=== PATIENT | male | born 1950 | race Caucasian/White ===

== ENCOUNTER 2020-08-13 13:23 | Outpatient (CLI) | payer MEDICARE, SELFPAY ==
[2020-08-14 13:52] LABS: SARS-CoV-2 RNA PCR Negative
== END 2020-08-13 13:24 | disposition home or self-care (01) ==
PROVIDERS: PCP Internal Medicine; Visit Provider Internal Medicine
DX: Z20.828 Contact with and (suspected) exposure to other viral communicable diseases (principal)
CPT/HCPCS: 87635; C9803; U0003

== ENCOUNTER 2020-10-17 12:58 | Outpatient (CLI) | payer MEDICARE, SELFPAY ==
[2020-10-17 13:58] LABS: SARS-CoV-2 Ag Positive (Negative)
[2020-10-18 18:38] LABS: SARS-CoV-2 RNA PCR Positive
== END 2020-10-17 12:59 | disposition home or self-care (01) ==
PROVIDERS: PCP Internal Medicine; Visit Provider Internal Medicine
DX: U07.1 COVID-19 (principal)
CPT/HCPCS: 87426; 87635; C9803; U0003

== ENCOUNTER 2020-11-12 01:24 | Day surgery (SDC) | payer MEDICARE, SELFPAY ==
[2020-11-05 13:10] VITALS: BMI 39.8
[2020-11-12 11:09] VITALS: BP 134/58; PULSE 73; RESP 16; TEMP 36.1; O2SAT 100; BMI 37.8
--- NOTE | 2020-11-12 11:15 | WPDANESEPPF ---
Anes - Initial Pre Proc Eval Procedure: Operation Date: 11/12/20 12:15 Proposed Procedures p Colonoscopy - Perez Dunn MD Date/Time: 11/12/20 11:15 Surgeon: Perez Dunn MD Pre Op Diagnosis: Positive Cologard Patient Data Age: 69 Gender: M Height: 1.85 m Weight: 130 kg Last Vital Signs Temp 36.1 C L 11/12/20 11:09 Pulse 73 11/12/20 11:09 Resp 16 11/12/20 11:09 BP 134/58 L 11/12/20 11:09 Pulse Ox 100 11/12/20 11:09 Allergies Allergy/AdvReac Type Severity Reaction Status Date / Time cefepime Allergy Severe Anaphylactic Verified 11/12/20 11:08 Shock vancomycin Allergy Severe Anaphylactic Verified 11/12/20 11:08 Shock Home Medications Medication Instructions Recorded Confirmed Type aspirin [Adult Aspirin EC Low 81 mg PO DAILY 11/05/20 11/05/20 History Strength] atenolol 50 mg PO HS 11/05/20 11/05/20 History cholecalciferol (vitamin D3) 50 mcg PO DAILY 11/05/20 11/05/20 History [Vitamin D3] diphenhydramine HCl [Benadryl] 25 mg PO HS 11/05/20 11/05/20 History insulin NPH and regular human 30 unit SUBCUT BID 11/05/20 11/05/20 History [Humulin 70/30 U-100 Insulin] mecobalamin (vitamin B12) 1,000 mcg PO DAILY 11/05/20 11/05/20 History mqeyhtld-cky-fidu-vitamin K [Adult 1 tablet PO DAILY 11/05/20 11/05/20 History Multivitamin with Iron] sodium,potassium,mag sulfates See Rx Instructions .ROUTE 11/05/20 Rx [Suprep Bowel Prep Kit] .COMPLEX #1 ml spironolacton-hydrochlorothiaz 1 tablet PO DAILY 11/05/20 11/05/20 History triamcinolone acetonide 1 applic TOPICAL PRN PRN 11/05/20 11/05/20 History Patient hx anesthesia problems: none Family hx anesthesia problems: none PMFSH Past Medical History Medical History (Updated 11/12/20 @ 11:18 by Carson Munguia MD) Cancer testicular CKD (chronic kidney disease) stage 3, GFR 30-59 ml/min Diabetes HTN (hypertension) Obesity Social History Social History Smoking status: Never smoker Alcohol intake: current Substance use: never Substance use type: does not use Living arrangements: with family Spiritual care concerns: No Anes - Eval Final PreProcedure Day of Procedure 11/12/20 11:15 Patient weight: obese Heart: regular rate and rhythm Lungs: clear to auscultation and normal air movement Airway: Mallampati scale class II Neurological: alert and oriented Last oral intake: >/= 8 hours ASA classification: III Emergent: no Anesthetic plan: proceed Anesthesia type and monitoring: general GIVS Informed Consent: The patient's anesthetic plan and its attendant risks and benefits were discussed with the patient/family/POA. Questions were solicited and answers provided to the satisfaction of the patient/family/POA.
[2020-11-12] MEDS: LACTATED RINGERS 1,000 ML 150 ML IV CONT (11:27)
[2020-11-12 11:29] LABS: Glucose Point of Care 147 (65-105)
--- NOTE | 2020-11-12 11:56 | PM.HPGS ---
History of Present Illness History of Present Illness Consent: Risks, benefits, and alternatives have been discussed and questions answered. Patient agrees to proceed with procedure. Chief complaint: Positive Cologard Narrative: Maykel Mosley Sr. is a 69 year old male with positive cologuard, never had colonoscopy. No family history of colon cancer. Review of Systems Constitutional: Constitutional: Denies headache(s) and Denies weakness Eyes: Eyes: Denies blurry vision ENT: Reports Normal hearing present, Denies headache(s) and Denies neck pain Cardiovascular: Cardiovascular: Denies chest pain and Denies dyspnea Respiratory: Respiratory: Denies dyspnea Gastrointestinal: Gastrointestinal: Reports no additional gastrointestinal complaints Genitourinary: Genitourinary: Denies dysuria Musculoskeletal: Musculoskeletal: Denies neck pain Integumentary/Breasts: Skin/Breast: Denies dry skin Neurologic: Reports Normal hearing present, Denies headache(s) and Denies weakness Psychiatric: Psychiatric: Denies anxiety Endocrine: Endocrine: Denies change in body appearance Hematologic/Lymphatic: Hematologic/Lymphatic: Denies easy bleeding Allergic/Immunologic: Allergic/Immunologic: Denies urticaria PMF Past Medical History Medical History (Updated 11/12/20 @ 11:57 by Perez Dunn MD) Cancer testicular CKD (chronic kidney disease) stage 3, GFR 30-59 ml/min Diabetes HTN (hypertension) Obesity Positive colorectal cancer screening using Cologuard test Social History Social History Smoking status: Never smoker Alcohol intake: current Substance use: never Substance use type: does not use Living arrangements: with family Spiritual care concerns: No Meds Home Medications and Allergies Home Medications Medication Instructions Recorded Confirmed Type aspirin [Adult Aspirin EC Low 81 mg PO DAILY 11/05/20 11/12/20 History Strength] atenolol 50 mg PO HS 11/05/20 11/12/20 History cholecalciferol (vitamin D3) 50 mcg PO DAILY 11/05/20 11/12/20 History [Vitamin D3] diphenhydramine HCl [Benadryl] 25 mg PO HS 11/05/20 11/12/20 History insulin NPH and regular human 30 unit SUBCUT BID 11/05/20 11/12/20 History [Humulin 70/30 U-100 Insulin] mecobalamin (vitamin B12) 1,000 mcg PO DAILY 11/05/20 11/12/20 History rvgqxzrr-jbk-tkax-vitamin K [Adult 1 tablet PO DAILY 11/05/20 11/12/20 History Multivitamin with Iron] sodium,potassium,mag sulfates See Rx Instructions .ROUTE 11/05/20 Rx [Suprep Bowel Prep Kit] .COMPLEX #1 ml spironolacton-hydrochlorothiaz 1 tablet PO DAILY 11/05/20 11/12/20 History triamcinolone acetonide 1 applic TOPICAL PRN PRN 11/05/20 11/12/20 History Allergies Allergy/AdvReac Type Severity Reaction Status Date / Time cefepime Allergy Severe Anaphylactic Verified 11/12/20 11:08 Shock vancomycin Allergy Severe Anaphylactic Verified 11/12/20 11:08 Shock Vital Signs Vital Signs - 24 hr 11/12/20 11:09 Temperature 97.0 F L Pulse Rate 73 Respiratory Rate 16 Blood Pressure 134/58 L Pulse Oximetry 100 Exam Const: General: comfortable and no acute distress HENMT: General nose exam: Normal nares present Eyes: General: appearance normal, both eyes and all related structures Neck: Neck: no JVD Resp: Auscultation: clear to auscultation bilaterally Cardio: Rate: regular rate Rhythm: regular rhythm GI: Inspection: non-distended GI Palp: Yes Soft to palpation Skin: General skin exam: normal color Neuro: General: gait normal Speech: normal speech Extrem: General: normal to inspection Psych: Mental Status: mental status grossly normal Assessment and Plan Assessment and plan (1) Positive colorectal cancer screening using Cologuard test: Code(s): R19.5 - Other fecal abnormalities Status: Acute Assessment and Plan: will proceed with colonoscopy
[2020-11-12 12:41] VITALS: BP 99/60; PULSE 72; RESP 16; O2SAT 100
[2020-11-12 12:51] VITALS: BP 125/69; PULSE 72; RESP 16; O2SAT 100
[2020-11-12 12:52] LABS: Glucose Point of Care 145 (65-105)
[2020-11-12 13:01] VITALS: BP 116/63; PULSE 72; RESP 16; O2SAT 96
== END 2020-11-12 13:10 | disposition home or self-care (01) ==
PROVIDERS: PCP Internal Medicine; Visit Provider Internal Medicine Gastroenterology
PROC: 0DJD8ZZ Inspection of Lower Intestinal Tract, Via Natural or Artificial Opening Endoscopic (ICD-10-PCS; CPT 45378; principal; 2020-11-12 12:15)
DX: R19.5 Other fecal abnormalities (principal); D12.0 Benign neoplasm of cecum; D12.3 Benign neoplasm of transverse colon; K63.5 Polyp of colon; K57.30 Diverticulosis of large intestine without perforation or abscess without bleeding; K64.8 Other hemorrhoids; I12.9 Hypertensive chronic kidney disease with stage 1 through stage 4 chronic kidney disease, or unspecified chronic kidney disease; N18.30 Chronic kidney disease, stage 3 unspecified; E11.22 Type 2 diabetes mellitus with diabetic chronic kidney disease; E66.9 Obesity, unspecified; Z68.37 Body mass index [BMI] 37.0-37.9, adult; Z85.47 Personal history of malignant neoplasm of testis
CPT/HCPCS: 45385; 88305; J2704; J7120

== ENCOUNTER 2021-02-07 14:10 | Outpatient (CLI) | payer MEDICARE, SELFPAY ==
--- NOTE | ~2021-02-07 | XR_ITS ---
EXAMINATION: XR knee LT 3V DATE: 02/07/2021 14:43 INDICATION: Generalized left knee pain and difficulty lifting the leg TECHNIQUE: Anteroposterior, sunrise and crosstable lateral views of the left knee were obtained COMPARISON: None. FINDINGS: Alignment is normal. No fracture. Joint spaces appear relatively preserved on nonweightbearing imagi ng. No joint effusion/layering lipohemarthrosis. Small enthesophytes at the proximal patella and ante rior tibial tuberosity. Small amount of heterotopic ossification along the periphery of the proximal medial head of the gastrocnemius muscle. Atherosclerotic calcification along the popliteal artery. So ft tissues are unremarkable. IMPRESSION: 1. No left knee joint effusion or acute osseous abnormality. Reviewed, dictated and finalized at location A.
== END 2021-02-07 14:11 | disposition home or self-care (01) ==
LOC: CHSIMG 14:14
PROVIDERS: PCP Internal Medicine; Visit Provider Nurse Practitioner Family
DX: M25.562 Pain in left knee (principal)
CPT/HCPCS: 73562

== ENCOUNTER 2021-02-17 13:58 | Outpatient (RCR) | payer MEDICARE, SELFPAY ==
--- NOTE | 2021-02-17 15:11 | PTOPEVAL ---
Thank you for referring Maykel Mosley Sr. to [facility].? The patient is scheduled to be seen for therapy? __3__x/week for 12 visits. Please review, sign, date and return this plan of care TYLER. I agree with and certify that the following plan of care is medically necessary. Referring Physician Date Admitting Provider: Attending Provider: Zain Newby MD Referring Provider: *PT Outpatient Evaluation Start: 02/17/21 13:57 Freq: Status: Active Protocol: Document 02/17/21 13:58 LAURYN (Rec: 02/17/21 15:03 LAURYN [id number]) Therapy Assessment Status Assessment Status Assessment Status Evaluation Outpatient Past Medical History Neurological History Hx Neurological Disorders No Significant History Cardiovascular History Hx Hypertension Yes Respiratory History Hx Respiratory Disorders No Significant History Gastrointestinal History Hx Appendectomy Yes: 2015 Hx Other Gastrointestinal Disorders Yes: POSITIVE COLOGUARD 2019 Genitourinary History Hx Renal Disease Yes: STATES WAS TOLD KIDNEY FUNCTION IS AT ABOUT 30% CREATINE IS HIGH 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 BOTH LEGS AND 09/2020 BECAME SEPTIC HOSP.,VEINOCELE DONE Hx Other Skin Disorders Yes: ULCER ON R-LEG MOSTLY HEALED WITH SMALL AREA 1/4 IN. Reproductive History Hx Other Reproductive Disorders Yes: R-ORCHIECTOMY 1984? Psychosocial History Hx Psychiatric Disorders No Significant History Pain History History of Any Previous or Ongoing No Significant History Instance of Pain Anesthesia History Hx Other Anesthesia Reactions Yes: SLOW TO WAKE UP Other History Hx Cancer Yes: TESTICULAR 1985? Hx Chemotherapy Yes: 1985? Hx MRSA Yes: 09/2020 AFTER HOSPITALIZATION FOR CELLULITIS - Evaluation Information Problem Diagnosis back pain, leg l.e. weakness, gait disorder Onset 02/10/21 Subjective Information Pt. reports that he suffers Query Text:As Reported By Patient/ from PVD. He states that the
--- NOTE | 2021-03-20 16:30 | PTOPEVAL ---
Thank you for referring Maykel Mosley Sr. to [facility].? The patient is scheduled to be seen for therapy? ____x/week for ___ weeks. Please review, sign, date and return this plan of care TYLER. I agree with and certify that the following plan of care is medically necessary. Referring Physician Date Admitting Provider: Attending Provider: Zain Newby MD Referring Provider: *PT Outpatient Evaluation Start: 02/17/21 13:57 Freq: Status: Active Protocol: Document 03/20/21 15:45 [facility] (Rec: 03/20/21 16:30 [facility] [id number]) Outpatient Past Medical History Neurological History Hx Neurological Disorders No Significant History Cardiovascular History Hx Hypertension Yes Respiratory History Hx Respiratory Disorders No Significant History Gastrointestinal History Hx Appendectomy Yes: 2015 Hx Other Gastrointestinal Disorders Yes: POSITIVE COLOGUARD 2019 Genitourinary History Hx Renal Disease Yes: STATES WAS TOLD KIDNEY FUNCTION IS AT ABOUT 30% CREATINE IS HIGH 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 BOTH LEGS AND 09/2020 BECAME SEPTIC HOSP.,VEINOCELE DONE Hx Other Skin Disorders Yes: ULCER ON R-LEG MOSTLY HEALED WITH SMALL AREA 1/4 IN. Reproductive History Hx Other Reproductive Disorders Yes: R-ORCHIECTOMY 1984? Psychosocial History Hx Psychiatric Disorders No Significant History Pain History History of Any Previous or Ongoing No Significant History Instance of Pain Anesthesia History Hx Other Anesthesia Reactions Yes: SLOW TO WAKE UP Other History Hx Cancer Yes: TESTICULAR 1984? Hx Chemotherapy Yes: 1984? Hx MRSA Yes: 09/2020 AFTER HOSPITALIZATION FOR CELLULITIS - Evaluation Information Problem Diagnosis back pain, leg l.e. weakness, gait disorder Onset 02/10/21 Subjective Information patient reports he feels good Query Text:As Reported By Patient/ this date. he reports no Family falls. patient reports he sarah
== END 2021-04-17 10:27 | disposition home or self-care (01) ==
LOC: CHSPT 13:58
PROVIDERS: PCP Internal Medicine; Visit Provider Internal Medicine
DX: M54.9 Dorsalgia, unspecified (principal); M48.00 Spinal stenosis, site unspecified; R53.1 Weakness; R26.9 Unspecified abnormalities of gait and mobility
CPT/HCPCS: 97110; 97112; 97161; 97530

== ENCOUNTER 2021-02-26 08:31 | Outpatient (CLI) | payer MEDICARE, SELFPAY ==
--- NOTE | ~2021-02-26 | CT_ITS ---
EXAMINATION: CT brain wo con DATE: 02/26/2021 09:14 INDICATION: Left leg weakness, heaviness TECHNIQUE: Computed tomography (CT) of the head was performed without intravenous contrast. The mA wa s adjusted according to patient size. Iterative reconstruction technique was employed. Exam dose: 60 5.33 mGy-cm total exam DLP. COMPARISON: None FINDINGS: Prominent bilateral carotid siphon internal carotid artery calcifications and left vertebra l artery calcification are noted. No intracranial mass lesion or hemorrhage or cerebrovascular accident is evident. No midline shift or mass effect. There is cerebral volume loss. No subdural or epidural hematoma is detected. No fracture or bone destruction of the cranial vault. Included paranasal sinuses and mastoid air cell s are unremarkable other than a couple of small mucus retention cysts or polyps of the right maxillar y sinus. IMPRESSION: Cerebral atherosclerosis Cerebral volume loss No acute intracranial finding Reviewed, dictated and finalized at Location A. Reviewed, dictated and finalized at location A.
--- NOTE | ~2021-02-26 | MR_ITS ---
EXAMINATION: MR lumbar spine wo con DATE: 02/26/2021 09:56 INDICATION: Low back pain. Lumbar spinal stenosis. TECHNIQUE: Magnetic resonance imaging (MRI) of the lumbar spine was performed without intravenous con trast. Sequences included sagittal T2-weighted FSE, sagittal T2-weighted FS FSE, sagittal T1-weighted FSE, and axial T2-weighted FSE. COMPARISON: CT abdomen and pelvis 09/18/2014 FINDINGS: There is 3 mm anterolisthesis of L5 on S1. There is mild chronic anterior wedging of T11 an d T12 vertebral bodies. There is mildly decreased disc height at L3-L4, moderately decreased disc hei ght at L4-L5, and severely decreased disc height at L5-S1 with endplate remodeling. The distal spinal cord signal intensity is normal. The conus medullaris is at L1-L2. There are cysts in the kidneys me asuring up to at least 3.4 cm on the left. The following disc levels are specifically discussed: L1-L2: The disc does not extend beyond the endplate margin. There is mild bilateral facet joint osteo arthritis. There is no neural foraminal stenosis. There is no central canal stenosis. L2-L3: The disc is bulging. There is moderate bilateral facet joint osteoarthritis. There is mild gera ateral neural foraminal stenosis. There is mild central canal stenosis. L3-L4: The disc is bulging and has an annular fissure. There is severe bilateral facet joint osteoart hritis. There is moderate bilateral neural foraminal stenosis. There is mild central canal stenosis. L4-L5: The disc is bulging with superimposed central extrusion. There is moderate bilateral facet benjy nt osteoarthritis. There is moderate bilateral neural foraminal stenosis. There is mild central canal stenosis. L5-S1: The disc is bulging and has an annular fissure. There is severe bilateral facet joint osteoart hritis. There is mild right and moderate left neural foraminal stenosis. There is mild central canal stenosis. IMPRESSION: 1. Severe lumbar spondylosis. Reviewed, dictated and finalized at location B.
== END 2021-02-26 08:32 | disposition home or self-care (01) ==
LOC: CHSIMG 08:34
PROVIDERS: PCP Internal Medicine; Visit Provider Internal Medicine
DX: M48.00 Spinal stenosis, site unspecified (principal); Z86.73 Personal history of transient ischemic attack (TIA), and cerebral infarction without residual deficits; I67.2 Cerebral atherosclerosis
CPT/HCPCS: 70450; 72148

== ENCOUNTER 2021-06-06 03:00 | Inpatient (IN) | payer MEDICARE, SELFPAY ==
[2021-06-06] VITALS (19 sets, daily range): BP systolic 90–143; BP diastolic 64–99; PULSE 73–129; RESP 13–20; TEMP 36.6–37.4; O2SAT 97–100; BMI 39.8
--- NOTE | 2021-06-06 | ECHO_ITS ---
Patient Info Name: Maykel Mosley Age: 70 years : 1950 Gender: Male Ht: 73 in Wt: 302 lbs BSA: 2.71 m2 HR: 78 bpm BP: 108 / 68 mmHg Heart Rhythm: Atrial Flutter Technical Quality: Poor Exam Date: 06/06/2021 1:47 PM Exam Location: [facility] Pulmonary Exam Room: ICU12 Patient Status: Inpatient Admit Date: 06/06/2021 Staff Ordering Physician: Harini Vázquez MD Muck Hauler: Shara Talley RDCS Attending Provider: Jemima Simeon MD Exam Type: CA echo dop color flow w con Study Info Indications - afib Complete two-dimensional, color flow and Doppler transthoracic echocardiogram is performed with contrast to opacify the left ventricle and to improve the deliniation of the left ventricle endocardial borders. Contrast/Agitated Saline Contrast/Ag. Saline: Definity Amount: 2.00 ml Administered By: Mary Grace Hernandez RN [employer] Reason for Poor Study: patient body habitus Summary 1. Technically difficult study with limited views. Regional wall motion assessment limited due to poor endomyocardial border definition despite definity contrast enhancement. 2. Left ventricular chamber dimension is normal. 3. Left ventricular systolic function is probably lower limits of normal, estimated at 50-55%. 4. There is mildly increased left ventricular wall thickness. 5. Left atrial chamber dimension is moderately enlarged. 6. Right atrial chamber dimension is moderately enlarged. 7. There is no aortic valve stenosis. 8. There is trace mitral valve regurgitation. 9. There is trace tricuspid valve regurgitation. 10. No pulmonary hypertension, estimated pulmonary arterial systolic pressure is 34 mmHg. Left Ventricle Left ventricular chamber dimension is normal. Left ventricular systolic function is probably lower limits of normal, estimated at 50-55%. There is mildly increased left ventricular wall thickness. The left ventricular diastolic function is indeterminate. Technically difficult study with limited views. Regional wall motion assessment limited due to poor endomyocardial border definition despite definity contrast enhancement. Right Ventricle Right ventricular chamber dimension is normal. Right ventricular systolic function is normal. Left Atria Left atrial chamber dimension is moderately enlarged. Right Atria Right atrial chamber dimension is moderately enlarged. Aortic Valve The aortic valve is probable trileaflet. There is no aortic valve stenosis. There is no aortic valve regurgitation. There is mild aortic valve calcification. Pulmonic Valve The pulmonic valve is not well visualized. Mitral Valve The mitral valve has normal leaflets. There is trace mitral valve regurgitation. The mitral valve annulus is moderately calcified. Tricuspid Valve The tricuspid valve leaflets are normal. There is trace tricuspid valve regurgitation. No pulmonary hypertension, estimated pulmonary arterial systolic pressure is 34 mmHg. Pericardium/Pleural The pericardium appears not well visualized. There is small pericardial effusion. Inferior Vena Cava Dilated inferior vena cava with no collapse upon inspiration consistent with significantly elevated right atrial pressure, 15 mmHg. Aorta The aortic root size at the sinus of Valsalva is normal. Left Ventricular Outflow Tract Name
--- NOTE | ~2021-06-06 | XR_ITS ---
EXAMINATION: XR chest 2V 06/06/2021 04:01 INDICATION: Chest palpitations PROCEDURE: PA and lateral views of the chest COMPARISON: No prior studies for comparison. FINDINGS: The lungs are clear. The cardiomediastinal silhouette is within normal limits. There are no pleural effusions. There is no pneumothorax suspected. IMPRESSION: 1: NO ACUTE CARDIOPULMONARY DISEASE. Reviewed, dictated and finalized at location [facility].
--- NOTE | 2021-06-06 03:44 | ECG_ITS ---
Measurements Intervals [place] Rate: 109 P: 260 RI: 164 QRS: -29 QRSD: 136 T: -61 QT: 322 QTc: 434 Interpretive Statements ATRIAL FLUTTER/TACHYCARDIA WITH RAPID VENTRICULAR RESPONSE EARLY PRECORDIAL R/S TRANSITION BORDERLINE T WAVE ABNORMALITY- INF/HIGH LAT LEADS BASELINE ARTIFACT- I, II, III, AVR, AVL, AVF, V2-V6 ABNORMAL ECG Electronically Signed On 06-06-2021 6:09:25 CDT by [place] D.O.
--- NOTE | 2021-06-06 03:48 | PC.NURSE ---
Pt to imaging at this time.
[2021-06-06 04:26] LABS: Basophils Percent Auto 0.8 % (0.2-1.2); Eosinophils Absolute Auto 0.5 K/mm3 (0-0.3); Eosinophils Percent Auto 9.2 % (0-4.4); Hematocrit 36.4 % (42.0-52.0); Immature Granulocyte Absolute 0.01 K/mm3 (0.00-0.031); Immature Granulocyte Percent A 0.2 % (0-0.5); Lymphocytes Absolute Auto 1.33 K/mm3 (0.9-3.2); Mean Corpuscular HGB Conc 30.2 g/dl (32-36); Mean Corpuscular Hemoglobin 27.6 pg (26-34); Mean Corpuscular Volume 91.2 fl (80-100); Mean Platelet Volume 10.3 fl (7.4-10.4); Monocytes Absolute Auto 0.5 K/mm3 (0.1-0.6); Neutrophils Absolute Auto 2.9 K/mm3 (1.3-6.7); Neutrophils Percent Auto 54.8 % (45.5-73.1); Platelet Count Result 161 k/mm3 (150-375); Red Blood Count 3.99 M/mm3 (4.6-6.20); White Blood Count 5.3 K/mm3 (4.5-10.0)
[2021-06-06] MEDS: SODIUM CHLORIDE 0.9% IV 500 ML 999 ML IV CONT (04:26)
[2021-06-06] MEDS: METOPROLOL TARTRATE INJ 5 MG/5 ML VIAL IV PUSH ×2 (04:27→05:37)
[2021-06-06 04:43] LABS: Add Urine Microscopic? NO; Appearance Urine Clear (Clear); Bilirubin Urine Negative (Negative); Blood Urine Negative (Negative); Color Urine Yellow (Yellow); Glucose Urine UA Negative (Negative); Ketones Urine Negative (Negative); Leukocyte Esterase Ur Negative LEU/UL (Negative); Nitrate Urine Negative (Negative); Protein Urine Negative (Negative); Specific Grav Ur 1.018 (1.001-1.035); Urobilinogen Urine Negative mg/dL (<2.0)
--- NOTE | 2021-06-06 04:49 | ED.ARRPALP ---
HPI - Arrhythmia/Palpitations General Chief Complaint: Arrhythmia/Palpitations Stated Complaint: palpitations Time Seen by Provider: 06/06/21 03:37 History of Present Illness HPI narrative: Patient presents with a funny sensation in his chest. Reports symptoms been present for the past several hours resolving. His home blood pressure and his own pulse and noted that his heart was skipping some beats so wanted to come in for evaluation. Denies any chest pain or shortness of breath. Reports some fatigue and dizziness. She denies similar symptoms in the past. Denies any nausea vomiting diarrhea. Denies any recent fevers, cough, congestion Related Data Home Medications Medication Instructions Recorded Confirmed aspirin [Adult Aspirin EC Low 81 mg PO DAILY 11/05/20 11/12/20 Strength] atenolol 50 mg PO HS 11/05/20 11/12/20 cholecalciferol (vitamin D3) 50 mcg PO DAILY 11/05/20 11/12/20 [Vitamin D3] diphenhydramine HCl [Benadryl] 25 mg PO HS 11/05/20 11/12/20 insulin NPH and regular human 30 unit SUBCUT BID 11/05/20 11/12/20 [Humulin 70/30 U-100 Insulin] mecobalamin (vitamin B12) 1,000 mcg PO DAILY 11/05/20 11/12/20 zkaujbcr-uib-ivzb-vitamin K [Adult 1 tablet PO DAILY 11/05/20 11/12/20 Multivitamin with Iron] spironolacton-hydrochlorothiaz 1 tablet PO DAILY 11/05/20 11/12/20 triamcinolone acetonide 1 applic TOPICAL PRN PRN 11/05/20 11/12/20 Allergies Allergy/AdvReac Type Severity Reaction Status Date / Time cefepime Allergy Severe Anaphylactic Verified 11/12/20 14:05 Shock vancomycin Allergy Severe Anaphylactic Verified 11/12/20 14:05 Shock procaine Allergy Unknown Verified 11/12/20 14:05 Review of Systems Review of Systems: CONSTITUTIONAL: Denies fever, chills, or sweats. EYES: Denies visual changes, redness, or discharge. ENT: Denies rhinorrhea, congestion, sore throat, or otalgia. CARDIOVASCULAR: Denies chest pain, palpitations, or edema. RESPIRATORY: Denies cough or dyspnea. GASTROINTESTINAL: Denies abdominal pain, nausea, vomiting, or diarrhea. GENITOURINARY: Denies dysuria or hematuria. SKIN: Denies rash or itching. MUSCULOSKELETAL: Denies back pain, joint pain, or myalgia. NEUROLOGIC: Denies headache, numbness, dizziness, or weakness. PSYCHIATRIC: Denies anxiety or depression. All systems reviewed & are unremarkable except as noted in HPI and below PMFSH Past Medical History Medical History Cancer testicular CKD (chronic kidney disease) stage 3, GFR 30-59 ml/min Diabetes HTN (hypertension) Obesity Positive colorectal cancer screening using Cologuard test Family History Family History Mother Family history of heart disease in male family member before age 55 Social History Social History Smoking status: Never smoker Alcohol intake: current Substance use: never Substance use type: does not use Spiritual care concerns: No Exam Narrative: GENERAL: Well-appearing, well-nourished, and in no acute distress. HEAD: Normocephalic, atraumatic. EYES: PERRLA and EOMI. ENT: Nares clear, no rhinorrhea or epistaxis. Mucous membranes moist. NECK: Supple. No masses. No JVD CHEST: Clear to auscultation. No respiratory distress. No wheezes rales or rhonchi HEART: Irregular tachycardia. No murmur heard. Normal peripheral pulses. ABDOMEN: Soft, nontender, nondistended, normal active bowel sounds. EXTREMITIES: Normal range of motion. No edema. SKIN: Warm, dry, no rash. NEURO: No focal deficits. Alert and oriented x3. PSYCH: Normal mood and affect. Course Vital Signs Vital signs: Vital Signs Temperature 37.4 C 06/06/21 03:21 Pulse Rate 120 H 06/06/21 03:21 Respiratory Rate 20 06/06/21 03:21 Blood Pressure 118/73 06/06/21 03:21 Pulse Oximetry 97 06/06/21 03:21 Temperature 37.4 C 06/06/21 03:21
[2021-06-06 04:53] LABS: Anion Gap 11 mmol/L (8-16); Carbon Dioxide 20 mmol/L (22-30); Chloride 105 mmol/L (98-107); Potassium 4.6 mmol/L (3.4-5.0); Sodium 136 mmol/L (137-145)
[2021-06-06 04:54] LABS: Alanine Aminotransferase 23 U/L (4-50); Albumin Level 4.3 g/dL (3.5-5.1); Alkaline Phosphatase 98 U/L (38-126); Aspartate Amino Transferase 30 U/L (17-59); Bilirubin,Total 0.7 mg/dL (0.2-1.3); Blood Urea Nitrogen 39 mg/dL (9-20); Calcium 8.6 mg/dL (8.4-10.2); Estimated CRCL calculation 49 ml/min; Estimated Glomerular Filt Rate 37; Glucose 196 mg/dL (65-110); Total Protein 8.4 g/dL (6.3-8.2)
[2021-06-06 05:06] LABS: Troponin I < 0.012 ng/mL (0.000-0.034)
--- NOTE | 2021-06-06 05:51 | PC.NURSE ---
Addendum entered by Esther Ames RN 06/06/21 05:51: Disregard note. Original Note: Crisis in ED to evaluate at this time.
--- NOTE | 2021-06-06 06:10 | PC.NURSE ---
Called ICU for report. Unit unable to receive report at this time, will call ED.
--- NOTE | 2021-06-06 06:34 | PC.NURSE ---
ICU unable to receive report at this time.
--- NOTE | 2021-06-06 07:43 | ADMIMU ---
This patient, Maykel Mosley Sr., was admitted to IMU status, and placed in Intensive Care Unit-12. Patient/family oriented to hospital policies and general routines including ID bracelet, bed and alarms, visiting hours, pain management, procedures, bathroom and other care routines, personal items, smoking policy, room service/diet, and visiting hours. Valuables list has been completed. Information on how to activate the Rapid Response Team has been discussed. Patient/Family are encouraged to report perceived risks to care and to ask questions if they do not understand what they are told or what they should do.
--- NOTE | 2021-06-06 08:45 | ECG_ITS ---
Measurements Intervals [place] Rate: 118 P: [place]: 0 QRS: -25 QRSD: 106 T: 29 QT: 316 QTc: 444 Interpretive Statements ATRIAL FLUTTER/TACHYCARDIA WITH RAPID VENTRICULAR RESPONSE LOW QRS VOLTAGE IN PRECORDIAL LEADS BORDERLINE ST-T WAVE ABNORMALITY- INF/LAT LEADS BASELINE WANDER- V6 ABNORMAL ECG Electronically Signed On 06-06-2021 9:46:19 CDT by [place] D.O.
--- NOTE | 2021-06-06 08:49 | PM.IMHP ---
H&P: HPI History of Present Illness Date/Time: 06/06/21 08:49 He is a 70-year-old male with past medical history of diabetes mellitus, hypertension, obesity, CKD, history of testicular cancer who came into the ED with complaints of funny feeling in the chest. It started after he took and dinner yesterday. He denied have any rocael chest pain or chest tightness. He denied to have any shortness of breath. He did have some lightheadedness but denied have any significant dizziness, presyncope or syncopal episode. He denied have any nausea vomiting and abdominal pain. He took 3 cups of coffee yesterday which is his usual. He took all his medication yesterday as well including atenolol. He was evaluated in the emergency department. He was found to have atrial fibrillation with rapid ventricular rate. He never had atrial fibrillation before. He was given 5 mg of Lopressor p.o. yesterday with no significant effect. He remained in atrial fibrillation at the time of my evaluation. His heart rate was in 110s and 120s. His blood pressure is within acceptable range. He denied have any significant symptoms at the time of my evaluation today. Chief Complaint: Funny feeling in the chest Review of Systems Review of Systems: A comprehensive review of systems has been reviewed with the patient and most of the symptoms are negative except the one's mentioned above in HPI. [facility] Past Medical History Medical History Cancer testicular CKD (chronic kidney disease) stage 3, GFR 30-59 ml/min Diabetes HTN (hypertension) Obesity Positive colorectal cancer screening using Cologuard test Family History Family History (Updated 06/06/21 @ 07:42 by Braeden Navarro RN) Mother Family history of heart disease in male family member before age 55 Father Multiple myeloma Social History Social History Smoking status: Never smoker Alcohol intake: never Substance use: never Substance use type: does not use Gender identity (if verbalized by the patient): Male Sexual Orientation (if Verbalized by the Patient): Straight or Heterosexual Spiritual care concerns: No Meds Home Medications and Allergies Home Medications Medication Instructions Recorded Confirmed Type aspirin [Adult Aspirin EC Low 81 mg PO DAILY 11/05/20 06/06/21 History Strength] atenolol 50 mg PO HS 11/05/20 06/06/21 History cholecalciferol (vitamin D3) 50 mcg PO DAILY 11/05/20 06/06/21 History [Vitamin D3] diphenhydramine HCl [Benadryl] 25 mg PO HS 11/05/20 06/06/21 History insulin NPH and regular human 30 unit SUBCUT BID 11/05/20 06/06/21 History [Humulin 70/30 U-100 Insulin] mecobalamin (vitamin B12) 1,000 mcg PO DAILY 11/05/20 06/06/21 History nyxlxoaa-oij-npwo-vitamin K [Adult 1 tablet PO DAILY 11/05/20 06/06/21 History Multivitamin with Iron] spironolacton-hydrochlorothiaz 1 tablet PO DAILY 11/05/20 06/06/21 History triamcinolone acetonide 1 applic TOPICAL PRN PRN 11/05/20 06/06/21 History Allergies Allergy/AdvReac Type Severity Reaction Status Date / Time cefepime Allergy Severe Anaphylactic Verified 11/12/20 14:05 Shock vancomycin Allergy Severe Anaphylactic Verified 11/12/20 14:05 Shock procaine Allergy Unknown Verified 11/12/20 14:05 Vital Signs Vital Signs - 24 hr 06/06/21 03:21 06/06/21 03:28 06/06/21 04:00 Temperature 37.4 C Pulse Rate 120 H 120 H 110 H Respiratory Rate 20 16 13 Blood Pressure 118/73 118/73 123/80 Pulse Oximetry 97 99 99 06/06/21 04:27 06/06/21 05:15 06/06/21 05:18 Temperature Pulse Rate 129 H 111 H 110 H Respiratory Rate 14 13 Blood Pressure 105/89 118/99 H Pulse Oximetry 98 98 06/06/21 05:31 06/06/21 05:37 06/06/21 05:46 Temperature Pulse Rate 118 H 127 H 126 H Respiratory Rate 15 15 Blood Pressure 119/94 H 143/82 H Pulse Oximetry 98 06/06/21 06:02 08
[2021-06-06] MEDS: SODIUM CHLORIDE 0.9% IV 1,000 ML 125 ML IV CONT (09:50)
[2021-06-06] MEDS: dilTIAZem HCl INJ 25 MG/5 ML VIAL 10 MG IV PUSH (09:53)
[2021-06-06] MEDS: ENOXAPARIN 100 MG/ML SYRINGE SUB-Q ×2 (09:54→21:22)
[2021-06-06] MEDS: ENOXAPARIN 40 MG/0.4 ML SYRINGE SUB-Q ×2 (09:54→21:21)
[2021-06-06] MEDS: ASPIRIN 81 MG ENTERIC TABLET PO (09:55)
[2021-06-06] MEDS: hydroCHLOROthiazide 25 MG TABLET PO (09:55)
[2021-06-06] MEDS: SPIRONOLACTONE 25 MG TABLET PO (09:55)
[2021-06-06] MEDS: THERAPEUTIC MULTIVITAMINS/MINERALS TAB (*BKC) 1 TABLET PO (09:55)
[2021-06-06] MEDS: CHOLECALCIFEROL 1,000 UNITS TABLET 2000 UNITS PO (09:55)
[2021-06-06] MEDS: CYANOCOBALAMIN 1,000 MCG TABLET 1000 MCG PO (09:55)
[2021-06-06 10:02] LABS: Glucose Point of Care 105 mg/dl (65-105)
[2021-06-06] MEDS: INSULIN HUMAN ISOPHAN/REGULAR 70/30 (*BKC) 100 UNITS/ML 30 UNITS SUB-Q ×2 (10:16→21:22)
[2021-06-06 12:24] LABS: Glucose Point of Care 166 mg/dl (65-105)
--- NOTE | 2021-06-06 12:56 | PM.CNCAR ---
Assessment and Plan Assessment and plan (1) Atrial flutter with rapid ventricular response: Code(s): I48.92 - Unspecified atrial flutter Status: Acute Assessment and Plan: Symptomatic atrial flutter with variable AV block and rapid ventricular response better controlled in general. Did not respond well to metoprolol however diltiazem has been most effective thus far. As such, we will continue for now. Check 2D echocardiogram assess LV function, wall motion abnormalities, valve pathology and pulmonary pressures. Systemic anticoagulation enoxaparin 1 milligram/kilogram subcutaneous q.12 hours for now. Transition to oral anticoagulation. CHADS2 Vasc score 4. Systemic anticoagulation advised. Explained pathophysiology of atrial fibrillation and atrial flutter, management options including medical therapy, catheter based ablation, and possible cardioversion. Although symptoms were very mild 1st noted within 24 hours of presentation he admits is possible he may have been in this for several days before but he cannot be sure. Further recommendations after review of 2D echo. It may be possible to utilize amiodarone on a short-term basis if necessary but we discussed this risk as well. Change diltiazem to 60 mg p.o. q.8 hours. While preference for beta-yan had not proven beneficial thus far. If significant LV dysfunction alternative to diltiazem would be advised as appropriate. All questions answered to patient and his family satisfaction. Will proceed with rate control strategy for the time being with recommendations to follow. (2) HTN (hypertension): Code(s): I10 - Essential (primary) hypertension Status: Acute Assessment and Plan: BP stable at present. Avoid significant hypotension. Will monitor tolerance with up titration and calcium channel yan therapy. (3) Diabetes: Code(s): E11.9 - Type 2 diabetes mellitus without complications Status: Acute Assessment and Plan: Management per primary service. (4) CKD (chronic kidney disease) stage 3, GFR 30-59 ml/min: Code(s): N18.30 - Chronic kidney disease, stage 3 unspecified Status: Acute Assessment and Plan: Discontinue IV fluids monitor renal function. Patient is not in acute decompensated heart failure at this time. He has chronic lower extremity edema due to venous insufficiency status post ablation unchanged in his estimation. History of Present Illness History of Present Illness Consult date/time: Date of Service: 06/06/21 12:56 Cardiology consultation at the request of Dr. Vázquez for our opinion regarding atrial flutter with rapid venticular response Requesting physician: Harini Vázquez MD Consult reason: atrial fibrillation (atrial flutter with RVR) Reason For Visit: Atrial Fibrillation w/RVR Narrative: Patient is a 70-year-old male with a past medical history significant for obesity, hypertension, diabetes mellitus, chronic kidney disease who presents to the emergency department her after noticing a mild funny feeling in his chest after dinner the night before. He did not admit to significant shortness of breath or chest pain. He noted some lightheadedness but no falls. He denied fevers, chills, headache or rocael palpitations. Patient states he then began to check his blood pressure and heart rate noted it was elevated. He had presented to the emergency department early this morning and was found to be in atrial flutter with rapid ventricular response and variable AV block. He was given IV and oral metoprolol without improvement. He was given diltiazem which significantly improved his heart rate overall. He is feeling well and has no complaints at this time. Troponins negative at presentation. He denies a history of CAD, CHF. He has chronic lower extremity edema for which he had previously seen a equipment service associate and underwent vena ablation without much improvement as he had venous stasis ulcers as d
[2021-06-06] MEDS: dilTIAZem HCL 30 MG TABLET PO (13:29)
[2021-06-06] MEDS: PERFLUTREN LIPID MICROSPHERES 1.5 ML VIAL DILUTED TO 10 ML TOTAL VOLUME IV PUSH (14:12)
[2021-06-06] MEDS: dilTIAZem HCL 60 MG TABLET PO (16:53)
[2021-06-06 17:05] LABS: Glucose Point of Care 69 mg/dl (65-105)
[2021-06-06 21:57] LABS: Glucose Point of Care 146 mg/dl (65-105)
[2021-06-07] VITALS (8 sets, daily range): BP systolic 114–126; BP diastolic 73–104; PULSE 67–116; RESP 11–14; TEMP 36.3–36.6; O2SAT 98–100
[2021-06-07] MEDS: dilTIAZem HCL 60 MG TABLET PO ×2 (06:29→13:30)
[2021-06-07 07:27] LABS: Basophils Percent Auto 0.8 % (0.2-1.2); Eosinophils Absolute Auto 0.4 K/mm3 (0-0.3); Eosinophils Percent Auto 8.5 % (0-4.4); Hemoglobin 10.9 g/dL (14.0-18.0); Immature Granulocyte Absolute 0.01 K/mm3 (0.00-0.031); Immature Granulocyte Percent A 0.2 % (0-0.5); Lymphocytes Absolute Auto 1.23 K/mm3 (0.9-3.2); Lymphocytes Percent Auto 25.5 % (18.3-44.2); Mean Corpuscular HGB Conc 30.3 g/dl (32-36); Mean Corpuscular Hemoglobin 27.6 pg (26-34); Mean Corpuscular Volume 91.1 fl (80-100); Mean Platelet Volume 10.1 fl (7.4-10.4); Monocytes Absolute Auto 0.5 K/mm3 (0.1-0.6); Monocytes Percent Auto 11.2 % (2.6-8.5); Neutrophils Absolute Auto 2.6 K/mm3 (1.3-6.7); Neutrophils Percent Auto 53.8 % (45.5-73.1); Platelet Count Result 164 k/mm3 (150-375); Red Blood Count 3.95 M/mm3 (4.6-6.20); Red Cell Distribution Width 15.3 % (11.5-14.5); White Blood Count 4.8 K/mm3 (4.5-10.0)
[2021-06-07 07:37] LABS: Anion Gap 9 mmol/L (8-16); Blood Urea Nitrogen 36 mg/dL (9-20); Calcium 8.5 mg/dL (8.4-10.2); Carbon Dioxide 21 mmol/L (22-30); Chloride 110 mmol/L (98-107); Estimated CRCL calculation 51 ml/min; Estimated Glomerular Filt Rate 40; Glucose 86 mg/dL (65-110); Magnesium 1.7 mg/dL (1.6-2.3); Potassium 4.8 mmol/L (3.4-5.0); Sodium 140 mmol/L (137-145)
[2021-06-07] MEDS: THERAPEUTIC MULTIVITAMINS/MINERALS TAB (*BKC) 1 TABLET PO (08:54)
[2021-06-07] MEDS: SPIRONOLACTONE 25 MG TABLET PO (08:54)
[2021-06-07] MEDS: INSULIN HUMAN ISOPHAN/REGULAR 70/30 (*BKC) 100 UNITS/ML 30 UNITS SUB-Q (08:54)
[2021-06-07] MEDS: ASPIRIN 81 MG ENTERIC TABLET PO (08:55)
[2021-06-07] MEDS: ENOXAPARIN 100 MG/ML SYRINGE SUB-Q (08:55)
[2021-06-07] MEDS: CHOLECALCIFEROL 1,000 UNITS TABLET 2000 UNITS PO (08:55)
[2021-06-07] MEDS: ENOXAPARIN 40 MG/0.4 ML SYRINGE SUB-Q (08:55)
[2021-06-07] MEDS: hydroCHLOROthiazide 25 MG TABLET PO (08:55)
[2021-06-07] MEDS: CYANOCOBALAMIN 1,000 MCG TABLET 1000 MCG PO (08:55)
--- NOTE | 2021-06-07 11:39 | PM.PNCARD ---
Progress Note: A&P Additional Plan AF/flutter with RVR, currently controlled with oral diltiazem, HTN, EF normal, plan Change diltiazem to 180 mg Long acting, start oral anticoagulation with eliquis, cont home HCTZ/Spironolactone, f/u in clinic Subjective Date/time seen: 06/07/21 11:39 Interval history: no acute events overnight AF/flutter rate controlled at 90s Asymptomatic Review of Systems Review of Systems: All systems reviewed & are unremarkable except as noted in HPI and below Exam Const: General: comfortable and no acute distress Other: Able to lie flat HENMT: General nose exam: Normal nares present and no epistaxis Mouth: Yes moist mucous membranes Eyes: Sclera: sclerae normal Pupils: Equal, round and reactive pupils present Neck: Neck: supple and no JVD Carotids: no bruits Resp: Auscultation: clear to auscultation bilaterally and lung sounds not diminished Other: No chest wall tenderness Cardio: Rate: abnormal rate Rhythm: abnormal rhythm Heart sounds: no gallops, no murmurs and no rubs GI: GI Palp: Yes Soft to palpation and No Tenderness to palpation present (GI) Auscultation: normal bowel sounds Skin: General skin exam: normal color, rashes and/or lesions noted and no erythema Other: Warm Neuro: Cranial nerves: Yes Equal, round and reactive pupils present Speech: normal speech Other: No obvious focal deficit or facial asymmetry Extrem: General: no edema Other: Normal capillary refills Intact distal pulses. Objective Data Vital Signs Vital Signs: Vital Signs - 24 hr 06/06/21 12:00 06/06/21 14:00 06/06/21 16:00 Temperature 36.8 C 36.6 C Pulse Rate 95 99 94 Respiratory Rate 16 18 Blood Pressure 109/79 124/88 Pulse Oximetry 100 100 06/06/21 20:00 06/06/21 22:00 06/07/21 00:00 Temperature 36.8 C 36.6 C Pulse Rate 73 96 90 Respiratory Rate 16 14 Blood Pressure 90/64 L 126/104 H Pulse Oximetry 100 100 06/07/21 02:00 06/07/21 04:00 06/07/21 05:10 Temperature 36.3 C L Pulse Rate 96 116 H 67 Respiratory Rate 14 14 Blood Pressure 124/86 Pulse Oximetry 98 98 06/07/21 07:19 06/07/21 08:00 06/07/21 08:50 Temperature 36.6 C Pulse Rate 107 H 90 90 Respiratory Rate 11 L Blood Pressure 114/73 Pulse Oximetry 99 06/07/21 10:00 Temperature Pulse Rate 85 Respiratory Rate Blood Pressure Pulse Oximetry Intake/Output Intake/Output: Intake & Output 06/04/21 06/05/21 06/06/21 06/07/21 23:59 23:59 23:59 23:59 Intake Total 1720 590 Output Total 300 250 Balance 1420 340 Meds/Results Medications: Active Medications Generic Name Dose Route Start Last Admin Trade Name Freq PRN Reason Stop Dose Admin Acetaminophen 650 mg 06/06/21 08:42 Acetaminophen 325 Mg Tablet PO Q6H PRN Mild Pain (1-3) or Fever Al Hydrox/Mg Hydrox/Simethicone 30 ml 06/06/21 08:42 Mag Hydrox/Al Hydrox/Simeth 30 Ml Udc PO QID PRN Dyspepsia Aspirin 81 mg 06/06/21 09:00 06/07/21 08:55 Aspirin 81 Mg Enteric Tablet PO 81 mg DAILY SASKIA Administration Cyanocobalamin 1,000 mcg 06/06/21 09:00 06/07/21 08:55 Cyanocobalamin 1,000 Mcg Tablet PO 07/06/21 09:01 1,000 mcg DAILY SASKIA Administration Dextrose 12.5 gm 06/06/21 08:47 Dextrose 50% 25 Gm/50 Ml Syringe IV PUSH PRN PRN Hypoglycemia Protocol Diltiazem HCl 60 mg 06/06/21 22:00 06/07/21 06:29 Diltiazem Hcl 60 Mg Tablet PO 60 mg Q8HR SASKIA Administration Enoxaparin Sodium 100 mg 06/06/21 09:00 06/07/21 08:55 Enoxaparin 100 Mg/Ml Syringe SUB-Q 100 mg Q12HR SASKIA Administration Enoxaparin Sodium 40 mg 06/06/21 09:00 06/07/21 08:55 Enoxaparin 40 Mg/0.4 Ml Syringe SUB-Q 40 mg Q12HR SASKIA Administration Glucagon 1 mg 06/06/21 08:47 Glucagon For Inj 1 Mg Vial IM PRN PRN Hypoglycemia Protocol Glucose 15 gm 06/06/21 08:47 Glucose Oral Gel 15 Gm Of Glucse In 37.5 Gm Tube PO PRN PRN
--- NOTE | 2021-06-07 12:55 | PM.DS ---
DS: Admitting Diagnosis Admitting Diagnosis Atrial fibrillation with rapid ventricular rate Diabetes Hypertension CKD DS: Discharge Diagnosis Discharge Diagnosis (1) Atrial fibrillation with rapid ventricular response: Code(s): I48.91 - Unspecified atrial fibrillation Status: Acute Assessment and Plan: He was given a dose of Cardizem 10 mg IV now. He was started on Cardizem 30 mg p.o. every 6 hours which was titrated up to 60 mg every 6 are. His heart rate seems to be adequately controlled and currently in 80s and 90s. Will be discharged on 180 mg of Cardizem longer-acting. Cardiology recommendations appreciated. Agreed with stopping beta-yan is he did not respond very well and starting Cardizem. Echocardiogram was performed which showed ejection fraction of 50-55%. No wall motion abnormality was seen. He was started on Lovenox for anticoagulation which is being transitioned to Eliquis at the time of discharge. His chads vascular score was 4. Systemic anticoagulation is advised. Continue to follow electrolytes and replace if indicated. Continue aspirin in the meantime. (2) Diabetes: Code(s): E11.9 - Type 2 diabetes mellitus without complications Status: Acute Assessment and Plan: Continue NPH at his home dose. Insulin sliding scale and continue to monitor fingerstick sugars. Check hemoglobin A1c. (3) HTN (hypertension): Code(s): I10 - Essential (primary) hypertension Status: Acute Assessment and Plan: Atenolol was put on hold. He was started on Cardizem and being discharged on Cardizem 180 mg long-acting once a day. Continue spironolactone/hydrochlorothiazide at his home dose. (4) CKD (chronic kidney disease) stage 3, GFR 30-59 ml/min: Code(s): N18.30 - Chronic kidney disease, stage 3 unspecified Status: Acute Assessment and Plan: Creatinine was 1.8 at the time of presentation. Seems more or less his baseline. Continue to monitor. (5) Obesity: Code(s): E66.9 - Obesity, unspecified Status: Acute Assessment and Plan: Encourage to lose some weight. Continue to monitor. DS: Summary Hospital Course Hospital Course: As above Time Spent with Patient Time attestation: Total time spent providing and/or coordinating discharge services: > 35 minutes Exam Narrative: General awake and alert not in acute distress CVS S1-S2 no murmur irregular irregular heart rate. Tachycardia. 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 Psychiatric cooperative appropriate mood and affect Extremities no edema DS: Data Data Completed and Pending Labs on day of discharge: Labs from last 24 hours 06/07/21 06/07/21 06/06/21 07:06 07:06 21:15 WBC 4.8 RBC 3.95 L Hgb 10.9 L Hct 36.0 L MCV 91.1 MCH 27.6 MCHC 30.3 L RDW 15.3 H Plt Count 164 MPV 10.1 Immature Gran % (Auto) 0.2 Neut % (Auto) 53.8 Lymph % (Auto) 25.5 [place] % (Auto) 11.2 H Eos % (Auto) 8.5 H Baso % (Auto) 0.8 Lymph # (Auto) 1.23 [place] # (Auto) 0.5 Eos # (Auto) 0.4 H Baso # (Auto) 0.0 Abs Immat Gran (auto) 0.01 Absolute Neuts (auto) 2.6 Absolute Nucleated RBC 0.0 Nucleated RBC % 0.0 Sodium 140 Potassium 4.8 Chloride 110 H Carbon Dioxide 21 L Anion Gap 9 BUN 36 H Creatinine 1.70 H Estim Creat Clear Calc 51 Estimated GFR 40 L Glucose 86 POC Capillary Glucose 146 H Calcium 8.5 Magnesium 1.7 06/06/21 16:56 WBC RBC Hgb Hct MCV MCH MCHC RDW Plt Count MPV Immature Gran % (Auto) Neut % (Auto) Lymph % (Auto) [place] % (Auto) Eos % (Auto) Baso % (Auto) Lymph # (Auto) [place] # (Auto) Eos # (Auto) Baso # (Auto) Abs Immat Gran (auto) Absolute Neuts (auto) Absolute Nucleated RBC Nucleated RBC
== END 2021-06-07 13:40 | disposition home or self-care (01) | DRG 310 ==
LOC: ANHED 05:30 → ANHICU 05:45
PROVIDERS: Admitting Provider Internal Medicine; Emergency Provider Emergency Medicine; PCP Internal Medicine; Visit Provider Internal Medicine Critical Care Medicine
DX: I48.91 Unspecified atrial fibrillation (principal); I48.92 Unspecified atrial flutter; E11.22 Type 2 diabetes mellitus with diabetic chronic kidney disease; I12.9 Hypertensive chronic kidney disease with stage 1 through stage 4 chronic kidney disease, or unspecified chronic kidney disease; N18.30 Chronic kidney disease, stage 3 unspecified; E66.9 Obesity, unspecified; Z85.47 Personal history of malignant neoplasm of testis; Z79.4 Long term (current) use of insulin; Z79.82 Long term (current) use of aspirin; Z79.899 Other long term (current) drug therapy
CPT/HCPCS: 36415; 71046; 80048; 80053; 81003; 82948; 83735; 84484; 85025; 93005; 93306; 94762; 96361; 96374; 96376; 99285; A9270; C8929; J1650; J1815; J7030; J7040; Q9957

== ENCOUNTER 2022-01-13 14:42 | Emergency (ER) | payer MEDICARE, SELFPAY ==
--- NOTE | ~2022-01-13 | XR_ITS ---
XR abdomen/kub 1V DATE: 01/13/2022 15:20 INDICATION: Constipation. Rectal pressure. TECHNIQUE: 2 supine AP views COMPARISON: None FINDINGS: There is a prominent amount of fecal material throughout the rectum and colon consistent wi th constipation. No bowel obstruction. The psoas shadows are intact. No visceromegaly is evident. Degenerative changes of the lower thoracic and lumbar spine. IMPRESSION: Prominent amount fecal material in the rectum and colon consistent with constipation; no bowel obstruction Reviewed, dictated and finalized at [facility]. Reviewed, dictated and finalized at location [facility].
--- NOTE | 2022-01-13 15:00 | ED.ABDPAIN ---
HPI - Abdominal Pain General Chief Complaint: Abdominal Pain Stated Complaint: amb Time Seen by Provider: 01/13/22 15:00 History of Present Illness HPI narrative: 71-year-old male patient is brought to the ER by the EMS with complaints of rectal pressure and or abdominal pain. The patient states that he has not had a bowel movement for the last 3 days and he has a lot of pressure and feels like he needs to go but he is unable to push. He is passing some mount of gas. He has not had any vomiting. He does not complain of any distention in the abdomen. Apparently has had problems with constipation and he is currently taking stool softeners usually with good results. Related Data Home Medications Medication Instructions Recorded Confirmed Humulin 70/30 U-100 Insulin 30 unit SUBCUT BID 11/05/20 01/13/22 aspirin 81 mg PO DAILY 11/05/20 01/13/22 cholecalciferol (vitamin D3) 50 mcg PO DAILY 11/05/20 01/13/22 [Vitamin D3] diphenhydramine HCl [Benadryl] 25 mg PO HS 11/05/20 01/13/22 mecobalamin (vitamin B12) 1,000 mcg PO DAILY 11/05/20 01/13/22 mfmeacqz-ksw-pwav-vitamin K 1 tablet PO DAILY 11/05/20 01/13/22 triamcinolone acetonide 1 applic TOPICAL PRN PRN 11/05/20 01/13/22 semaglutide [Ozempic] 1 mg SUBCUT WEEKLY 01/13/22 01/13/22 Allergies Allergy/AdvReac Type Severity Reaction Status Date / Time cefepime Allergy Severe Anaphylactic Verified 01/13/22 15:24 Shock vancomycin Allergy Severe Anaphylactic Verified 01/13/22 15:24 Shock procaine Allergy Unknown Unknown Verified 01/13/22 15:24 Review of Systems Review of Systems: All systems reviewed & are unremarkable except as noted in HPI and below PMFSH Past Medical History Medical History Cancer testicular CKD (chronic kidney disease) stage 3, GFR 30-59 ml/min Diabetes HTN (hypertension) Obesity Positive colorectal cancer screening using Cologuard test Family History Family History Mother Family history of heart disease in male family member before age 55 Father Multiple myeloma Social History Social History Smoking status: Never smoker Alcohol intake: never Substance use: never Substance use type: does not use Gender identity (if verbalized by the patient): Male Sexual Orientation (if Verbalized by the Patient): Straight or Heterosexual Spiritual care concerns: No Exam Narrative: Alert male patient in significant amount of distress because of rectal pressure vital signs are stable. patient is afebrile. HEENT is normal. Neck is supple. Heart and lungs are clear. Abdomen is soft and nontender. Rectal examination is consistent with fecal impaction. Prostate is not palpated . Skin is warm and dry color normal. Extremities are normal. Neurologic exam is normal. Course Course Emergency Course: Patient was treated with the glycerin suppository x2 and had good result. He also had mild disimpaction assist by the nurse. He was given an enema and he has had more results. He feels better and wants to go home. His labs have been reviewed and are normal. KUB was normal and negative for any obstruction Discharge Plan Discharge Clinical Impression: Fecal impaction in rectum Patient Disposition: Home, Self-Care Condition: Stable Additional Instructions: Stay well hydrated. Continue all routine medications. Continue the Metamucil, MiraLax and Dulcolax combination and also drink prune juice to avoid further constipation. Follow-up with your doctor as needed Prescriptions: No Action Ozempic 1 mg/dose (4 mg/3 mL) pen injector 1 mg SUBCUT WEEKLY RF: 0 Humulin 70/30 U-100 Insulin 100 unit/mL (70-30) suspension 30 unit SUBCUT BID RF: 0 aspirin 81 mg Tablet,Delayed Release (Dr/Ec) 81 mg PO DAILY RF: 0 triamcinolone acetonide 0.1 % ointm
[2022-01-13 15:02] LABS: Glucose Point of Care 117 mg/dl (65-105)
[2022-01-13 15:16] VITALS: BP 132/70; PULSE 85; RESP 20; TEMP 36.3; O2SAT 100
[2022-01-13] MEDS: GLYCERIN CHILD 1.2 GM SUPP 4 SUPP RECTAL (15:53)
[2022-01-13 16:06] LABS: Basophils Absolute Auto 0.06 K/mm3 (0.00-0.10); Basophils Percent Auto 0.7 % (0.0-1.0); Eosinophils Absolute Auto 0.15 K/mm3 (0.02-0.50); Eosinophils Percent Auto 1.7 % (1.0-6.0); Hemoglobin 12.7 g/dL (12.4-15.3); Immature Granulocyte Absolute 0.03 K/mm3 (0.00-0.00); Immature Granulocyte Percent A 0.3 % (0.0-0.0); Lymphocytes Absolute Auto 1.29 K/mm3 (1.10-4.50); Lymphocytes Percent Auto 14.3 % (18.0-42.0); Mean Corpuscular HGB Conc 32.6 g/dL (32.0-36.0); Mean Corpuscular Hemoglobin 28.2 pg (27.0-31.0); Mean Corpuscular Volume 86.5 fL (78.0-102.0); Mean Platelet Volume 9.7 fl (8.7-11.0); Monocytes Absolute Auto 0.62 K/mm3 (0.10-0.90); Monocytes Percent Auto 6.9 % (2.0-11.0); Neutrophils Absolute Auto 6.9 K/mm3 (1.7-7.2); Neutrophils Percent Auto 76.1 % (50.0-70.0); Platelet Count Result 220 K/mm3 (150-420); Red Blood Count 4.51 M/mm3 (4.70-6.10); Red Cell Distribution Width 14.2 % (11.6-14.4)
[2022-01-13 16:21] LABS: Alanine Aminotransferase 32 U/L (16-63); Albumin Level 3.9 g/dL (3.4-5.0); Alkaline Phosphatase 103 U/L (46-116); Anion Gap 14 mmol/L (8-16); Aspartate Amino Transferase 24 U/L (15-37); Bilirubin,Total 0.8 mg/dL (0.00-1.00); Blood Urea Nitrogen 35 mg/dL (7-18); Carbon Dioxide 23 mmol/L (21-32); Chloride 102 mmol/L (98-108); Estimated CRCL calculation 41 ml/min; Estimated Glomerular Filt Rate 35; Glucose 117 mg/dL (70-99); Osmolality Calculated 297 mOsm/kg (285-295); Potassium 4.2 mmol/L (3.5-5.1); Sodium 139 mmol/L (136-145); Total Protein 8.2 g/dL (6.4-8.2)
--- NOTE | 2022-01-13 17:00 | PC.NURSE ---
1540 PT HAD A LARGE BOWEL MOVEMENT NOW GIVEN SUPPOSITORIES 1655 ENEMA GIVEN ANDREZ WELL
[2022-01-13 18:02] LABS: Add Urine Microscopic? NO; Appearance Urine Clear (Clear); Bilirubin Urine Negative (Negative); Blood Urine Negative (Negative); Color Urine Yellow (Yellow); Glucose Urine UA Negative (Negative); Ketones Urine Negative (Negative); Leukocyte Esterase Ur Negative LEU/UL (Negative); Nitrate Urine Negative (Negative); Protein Urine Negative (Negative); Specific Grav Ur 1.015 (1.010-1.020); Urobilinogen Urine 0.2 mg/dL (0.2-1.0); pH Urine 6.5 (5.0-8.0)
[2022-01-13 18:15] VITALS: BP 177/83; PULSE 81; RESP 20; TEMP 36.7; O2SAT 99
--- NOTE | 2022-01-13 18:55 | PC.NURSE ---
1730 karena jovani well small results states he feels much better states he is ready to go home
== END 2022-01-13 18:15 | disposition home or self-care (01) ==
PROVIDERS: Emergency Provider Emergency Medicine; PCP Internal Medicine
DX: K56.41 Fecal impaction (principal); E11.9 Type 2 diabetes mellitus without complications; I12.9 Hypertensive chronic kidney disease with stage 1 through stage 4 chronic kidney disease, or unspecified chronic kidney disease; N18.30 Chronic kidney disease, stage 3 unspecified; Z85.47 Personal history of malignant neoplasm of testis
CPT/HCPCS: 36415; 74018; 80053; 81003; 82948; 85025; 99283; A9270

== ENCOUNTER 2023-03-08 15:49 | Outpatient (CLI) | payer MEDICARE, SELFPAY ==
[2023-03-08 17:16] LABS: Alanine Aminotransferase 60 U/L (16-63); Alkaline Phosphatase 84 U/L (46-116); Anion Gap 10 mmol/L (8-16); Aspartate Amino Transferase 21 U/L (15-37); Bilirubin,Total 0.9 mg/dL (0.00-1.00); Blood Urea Nitrogen 46 mg/dL (7-18); Calcium 8.7 mg/dL (8.5-10.1); Carbon Dioxide 26 mmol/L (21-32); Chloride 101 mmol/L (98-108); Estimated Glomerular Filt Rate 35; Glucose 245 mg/dL (70-99); Osmolality Calculated 303 mOsm/kg (285-295); Potassium 4.9 mmol/L (3.5-5.1); Sodium 137 mmol/L (136-145); Total Protein 7.5 g/dL (6.4-8.2)
[2023-03-08 17:18] LABS: Basophils Absolute Auto 0.02 K/mm3 (0.00-0.10); Basophils Percent Auto 0.2 % (0.0-1.0); CRP < 0.5 mg/dL (0.0-0.9); Eosinophils Absolute Auto 0.15 K/mm3 (0.02-0.50); Eosinophils Percent Auto 1.6 % (1.0-6.0); Hematocrit 43.7 % (37.0-46.0); Hemoglobin 14.4 g/dL (12.4-15.3); Immature Granulocyte Absolute 0.07 K/mm3 (0.00-0.00); Immature Granulocyte Percent A 0.8 % (0.0-0.0); Lymphocytes Absolute Auto 1.89 K/mm3 (1.10-4.50); Lymphocytes Percent Auto 20.5 % (18.0-42.0); Mean Corpuscular Hemoglobin 28.3 pg (27.0-31.0); Mean Corpuscular Volume 85.9 fL (78.0-102.0); Mean Platelet Volume 10.1 fl (8.7-11.0); Monocytes Absolute Auto 0.62 K/mm3 (0.10-0.90); Monocytes Percent Auto 6.7 % (2.0-11.0); Neutrophils Absolute Auto 6.5 K/mm3 (1.7-7.2); Neutrophils Percent Auto 70.2 % (50.0-70.0); Platelet Count Result 248 K/mm3 (150-420); Red Blood Count 5.09 M/mm3 (4.70-6.10); Red Cell Distribution Width 13.2 % (11.6-14.4); White Blood Count 9.2 K/mm3 (4.8-10.8)
[2023-03-08 17:56] LABS: Hemoglobin A1C 7.1 % (<5.7)
== END 2023-03-08 15:50 | disposition home or self-care (01) ==
PROVIDERS: PCP Internal Medicine; Visit Provider Internal Medicine
DX: M79.605 Pain in left leg (principal); E11.9 Type 2 diabetes mellitus without complications
CPT/HCPCS: 36415; 80053; 83036; 85025; 86140

== ENCOUNTER 2023-03-10 12:23 | Outpatient (CLI) | payer MEDICARE, SELFPAY ==
--- NOTE | ~2023-03-10 | XR_ITS ---
AP and lateral views of the left hip Clinical history: Pain Findings: No acute fracture or dislocation is seen. Osseous alignment is anatomic. The left hip joint and left SI joint are preserved. Soft tissues are unremarkable. Impression: No significant abnormality is seen. Reviewed, dictated and finalized at [facility]. Impression: No significant abnormality is seen.
--- NOTE | ~2023-03-10 | XR_ITS ---
XR knee LT 3V 03/10/2023 13:08 Indication: Chronic left knee pain Procedure: 3 views left knee Comparison: 02/07/2021 Findings: There is mild tricompartment osteoarthritis. No fracture, subluxation or dislocation. No si gnificant joint effusion. There are extensive vascular calcifications. Prominent tibial tuberosity. Impression: 1: Mild osteoarthritis of the left knee. Reviewed, dictated and finalized at location [facility]. Impression: 1: Mild osteoarthritis of the left knee.
--- NOTE | ~2023-03-10 | XR_ITS ---
Lumbosacral Spine: AP and lateral views Clinical History: Pain Findings: The normal lordotic curve is maintained. 5 mm retrolisthesis of L2 over L3 present. There i s mild to moderate degenerative disc narrowing throughout the lumbar spine. There is moderate facet a rthropathy throughout the lumbar spine. The sacroiliac joints are normally outlined. Impression: Moderate degenerative spondylosis, as above. 5 mm retrolisthesis of L2 over L3. Reviewed, dictated and finalized at location . Impression: Moderate degenerative spondylosis, as above. 5 mm retrolisthesis of L2 over L3.
== END 2023-03-10 12:24 | disposition home or self-care (01) ==
LOC: CHSIMG 12:26
PROVIDERS: PCP Internal Medicine; Visit Provider Internal Medicine
DX: E11.9 Type 2 diabetes mellitus without complications (principal); M79.605 Pain in left leg; M43.16 Spondylolisthesis, lumbar region; M17.12 Unilateral primary osteoarthritis, left knee
CPT/HCPCS: 72100; 73502; 73562

== ENCOUNTER 2023-03-17 13:29 | Outpatient (RCR) | payer MEDICARE, SELFPAY ==
--- NOTE | 2023-03-17 13:54 | PTOPEVAL1 ---
Assessment and note entered by Jared Ibrahim Evaluation Information Assessment Status Evaluation Diagnosis lumbosacral radiculopathy Onset 02/24/23 Subjective Information Pt. reports that he has had increasing back pain for 3 weeks. He reports that he does not recall any severe back pain prior to the past 3 weeks. He reports that he can currently only stand for about 1 minute. He is currently using a cane due pain in the back. Pt. reports that he has become sedentary over the past 3 weeks. He reports that he was able to care for his yard, but cannot due to his pain. He is requiring assistance from his family to care for the home. He reports that he cannot stand to do dishes. He reports that his goal is to decrease his pain with standing activities. Reported Pain Level Pain Score 5: Self Report Assessment PT Clinical Summary Pt. is a 72 year old male who enters the clinic with low back pain. He presents with impaired postural awareness, impaired gait, functional decline and generalized l.e. weakness. Continued skilled PT is indicated in order to improve these areas to allow the pt. to return to normal IADL performance without limitation. Plan of Care Interventions Electrical Stimulation,Gait Training,Hot Pack/Cold Pack,Manual Therapy,Neuro Re-education, Therapeutic Activities,Therapeutic Exercise PT Services Indicated Yes Treatment Frequency and 2x/week x 10 visits Duration These treatments will address the objective and functional deficits as defined above. The patient will be advanced safely and appropriately in order for the patient to progress towards his/her prior level of function. Additional exercises will be introduced and as well as a comprehensive home exercise program upon discharge, if needed, ?to ensure carryover of functional gains achieved in the clinic. This treatment plan has been reviewed and agreement upon by the patient.
--- NOTE | 2023-04-21 15:44 | PTOPDC ---
Assessment and note entered by JT File, PT Evaluation Information Assessment Status Discharge Diagnosis lumbosacral radiculopathy Onset 02/24/23 Subjective Information patient reports he feels about the same today. he reports he has not achieved as much progress with therapy as he has in the past. he reports he still struggles the most with standing and walking . Reported Pain Level Pain Score 4: Self Report Assessment PT Clinical Summary mr. cui presents to skilled PT for his 10th skilled therapy visit. as of this date, he continues to have pain in the lower back and down the L LE. he has met only his goal for HEP performance. he would best DC skilled PT due to lack of significant progress made in therapy, and return to MD for follow up and next steps. Plan of Care PT Services Indicated Yes
--- NOTE | 2023-04-21 15:44 | OPREHPOC ---
Outpatient Therapy Plan of Care This is a Multidisciplinary Plan of Care that may contain components documented by all disciplines (PT, OT, and ST.) PT Problem 1 PT Problem #1 Knowledge Deficit PT Goal 1 Goal Pt. will be independent with a HEP addressing strength and trunk moblity. Target Visit 2 Progress Met PT Problem 2 PT Problem #2 Pain PT Goal 1 Goal Pt. will be able to stand for 1 hour with 6/10 pain at worst Target Visit 5 Progress Not Met PT Goal 2 Goal Pt. will return to being able to stand long enough to complete yard work. Target Visit 10 Progress Not Met PT Problem 3 PT Problem #3 Impaired Strength PT Goal 1 Goal Increase bilateral l.e. strength by 1/2 mm. grade Target Visit 6 Progress Not Met PT Goal 2 Goal Demosntrate ability to stand unsupported for 1 hour to complete household duties. Progress Not Met
== END 2023-04-21 16:20 | disposition home or self-care (01) ==
LOC: CHSPT 13:29
PROVIDERS: PCP Internal Medicine; Visit Provider Internal Medicine
DX: M54.17 Radiculopathy, lumbosacral region (principal)
CPT/HCPCS: 97014; 97110; 97150; 97161; 97530; G0283

== ENCOUNTER 2023-03-18 09:52 | Outpatient (CLI) | payer MEDICARE, SELFPAY ==
--- NOTE | ~2023-03-18 | MR_ITS ---
MRI of the lumbar spine Clinical History: Back pain Technique: Axial T2-weighted images, and sagittal T2 weighted and T2 fat-sat images were acquired. Ex am was terminated this point, without completion of the additional typical sequences. COMPARISON: 02/26/2021 Findings: No acute fracture or subluxation identified in the lumbar spine. Osseous alignment is uncha nged from prior exam. No suspicious bone marrow signal abnormality evident on the sequences provided. At L1-L2, there is no disc bulge or herniation. There is mild facet arthropathy. No spinal canal sten osis or neural foraminal narrowing. At L2-L3, there is minimal disc bulge and minimal facet arthropathy. No spinal canal stenosis. Neural foramina are preserved. At L3-L4, there is diffuse disc bulge and moderate facet arthropathy, resulting in mild central canal stenosis. There is severe left neural foraminal narrowing and moderate to severe right neural forami nal narrowing. At L4-L5, there is diffuse disc bulge with probable superimposed central to left paracentral disc pro trusion. There is mild to moderate facet arthropathy. There is probable lateral recess stenosis bilat erally. There is severe right neural foraminal narrowing. Left neural foramen preserved. At L5-S1, there is advanced degenerative disc narrowing with mild disc bulge and moderate facet arthr opathy. No central canal stenosis. There is probable moderate left neural foraminal narrowing and min imal right neural foraminal narrowing. Paravertebral soft tissues are unremarkable. Impression: Incomplete exam, as noted above. Moderate to severe spondylosis at L3-L4 and L4-L5, as detailed above. Ybga-[id number] degenerative spondylosis at L5-S1, as detailed above. Reviewed, dictated and finalized at [facility]. Impression: Incomplete exam, as noted above. Moderate to severe spondylosis at L3-L4 and L4-L5, as detailed above. [id number] degenerative spondylosis at L5-S1, as detailed above.
== END 2023-03-18 09:53 | disposition home or self-care (01) ==
LOC: CHSIMG 09:56
PROVIDERS: PCP Internal Medicine; Visit Provider Internal Medicine
DX: M54.50 Low back pain, unspecified (principal); M43.06 Spondylolysis, lumbar region
CPT/HCPCS: 72148

== ENCOUNTER 2025-01-31 14:55 | Outpatient (CLI) | payer MEDICARE, SELFPAY ==
--- NOTE | ~2025-01-31 | XR_ITS ---
XR knee LT 3V Ordering provider: Misty Espinoza, BALE BREAKER OPERATOR History: . left knee pain . Comparison: None. FINDINGS: BONES: No acute fracture or dislocation. JOINT SPACES: Narrowing of the medial compartment. SOFT TISSUES: Vascular calcification. IMPRESSION: No acute osseous abnormality left knee. Moderate osteoarthritic changes. Reviewed, dictated and finalized at location A.
--- OUTSIDE RECORDS SUMMARY | 2025-01-31 16:12 | XMS_ITS | CONTINUITY OF CARE DOCUMENT ---
Author Name paris, paris Address Unknown Organization [facility] Address [address] [place] [address] Phone [phone] Care Team Providers Care Tone Cabinet Assembler Name Role Phone Romeo TOUSSAINT, Que Unavailable [phone] IZAIAH BROWN DPM Unavailable [phone] MATHIEU ARANA MD Unavailable PROBLEMS Condition Status Date Provider Notes Family History of CVA or Stroke: completed - Que Walters MD Palpitation active Kenney Roldan MD HTN essential active Kenney Roldan MD DM - type 2 active Kenney Roldan MD Peripheral vascular disease active Kenney Roldan MD Edema - localized active Kenney Roldan MD Venous hypertension - LLE inflammation active Josseline Salguero RN ENCOUNTERS Date Type Provider Location Encounter Diag nosis - In-person encounter Office Visit [facility] Venous hypertension - LLE inflammation - In-person encounter Office Visit [facility] Venous hypertension - LLE inflammation - In-person encounter Office Visit [facility] Family History of CV A or Stroke: - In-person encounter Office Visit [facility] - In-person encounter Office Visit [facility] PalpitationHTN essentialDM - type 2Peripheral vascular diseaseEdema - localized VITAL SIGNS Date Observation Value Provider Body Mass Index (Ratio) 51.90 kg/m2 volodymyr Walters MD blood pressure, diastolic 85 mm[Hg] Rh onleandra Brianna blood pressure, systolic 130 mm[Hg] Rho clinton Brianna oxygen saturation, oximetry 98 % Michelle Brianna pulse rate 71 /min Michelle Brianna blood pressure, cuff size regular Rh onleandra Brianna respiratory rate E&M 16 /min Michelle Brianna weight E&M 293 [lb_av] Michelle Brianna height E&M 63 [in_i] Michelle Reed Body Mass Index (Ratio) 51.19 kg/m2 volodymyr Walters MD blood pressure, diastolic 70 mm[Hg] Kr isty Thanh blood pressure, systolic 120 mm[Hg] Kri stana rosa Stayton oxygen saturation, oximetry 100 % Brandy Stayton pulse rate 72 /min Brandy Thanh respiratory rate E&M 17 /min Brandy Stayton blood pressure, cuff size regular Kr isgary Stayton weight E&M 289 [lb_av] Brandy Thanh height E&M 63 [in_i] Brandy Thanh Body Mass Index (Ratio) 40.74 kg/m2 volodymyr Walters MD blood pressure, diastolic 70 mm[Hg] Ra adeola Stephens blood pressure, systolic 114 mm[Hg] Rac venkatesh Slusser oxygen saturation, oximetry 98 % Jazz Slusser respiratory rate E&M 18 /min Jazz Slusser pulse rate 76 /min Jazz Slusser weight E&M 230 [lb_av] Jazz Slusser height E&M 63 [in_i] Jazz Slusser Body Mass Index (Ratio) 53.85 kg/m2 Robe rt Leonid Roldan MD respiratory rate E&M 16 /min [facility] pulse rate 62 /min [facility] oxygen saturation, oximetry 99 % Guillermo Mcgarrymika blood pressure, diastolic 76 mm[Hg] Gio Joseph blood pressure, systolic 130 mm[Hg] Damaris alford [facility] weight E&M 304 [lb_av] Guillermo [facility] height E&M 63 [in_i] [facility] Body Mass Index (Ratio) 38.26 kg/m2 Robe rt Leonid Roldan MD blood pressure, resting Yes Andrés Lee height E&M 63 [in_i] Michelle Reed blood pressure, diastolic 90 mm[Hg] Rh onda Brianna blood pressure, systolic 150 mm[Hg] Rho clinton Reed oxygen saturation, oximetry 98 % Michelle Reed pulse rate 72 /min Michelle Reed weight E&M 216 [lb_av] Michelle Reed ALLERGIES Allergy Name Onset Date Reaction Criticality Status CEFEPIME High Criticality active NORVASC High Criticality active VANCOMYCIN High Criticality active RESULTS Date Observation Value Provider Reference Range Interpretat ion Location NT-pro BNP 590 [employer] High HISTORY OF MEDICATION USE Medication Status Instructions Dates Provider Indications Com ments AUGMENTIN 875-125 MG ORAL TABLET completed Take one tablet twice daily - Josseline Salguero RN LEVAQUIN 500 MG ORAL TABLET completed one tab daily x 7 days - Brandy Law TRIAMCINOLONE ACETONIDE 0.025 % EXTERNAL OINTMENT active apply as needed Jazz Stephens SPIRONOLACTONE-HC TZ 25-25 MG ORAL TABLET active 1 tab by mouth once daily Jazz Stephens HYDROXYZINE HCL 25 MG ORAL TABLET completed 1 tab by mouth three times a day as needed for itching - Michelle Brianna ATENOLOL 50 MG ORAL TABLET active 1 tab by mouth once daily Jazz Stephens MAGNESIUM OXIDE 250 MG ORAL TABLET active 1 tab by mouth once daily Jazz Stephens ONE DAILY MULTIVITAMIN/IRON ORAL TABLET active 1 tab by mouth once daily Jazz Stephens GLIMEPIRIDE 4 MG ORAL TABLET completed take 1 tablet twice daily - Jazz Angelo METFORMIN HCL 1000 MG ORAL TABLET completed take 1 tablet twice daily - Jazz Stephens B-12 1000 MCG ORAL TABLET active take 1 tablet once daily Guillermo Joseph NORVASC 10 MG ORAL TABLET completed ONE TAB. DAILY - Jazz Stephens ASPIRIN 81 MG ORAL TABLET active one tab daily Michelle Reed LISINOPRIL-HYDROC HLOROTHIAZIDE 10-12.5 MG ORAL TABLET completed one tab daily - Jazz Stephens ATENOLOL 25 MG ORAL TABLET completed one tab daily - Jazz Stephens GLIPIZIDE 5 MG ORAL TABLET completed one tab twice daily - Guillermo Joseph ACTOPLUS MET XR 15-1000 MG ORAL TABLET EXTENDED RELEASE 24 HOUR completed one tab twice daily - Guillermo Joseph SOCIAL HISTORY Date Observation Value Provider smoking status Never smoker Michelle Reed smoking status Never smoker Brandy Law social history revie flip E&M reviewed - no changes required Que Walters MD appendectomy, history of yes Siria Walters MD smoking status Never smoker Jazz stern social history revisaiah castelan E&M reviewed - no changes required Kenney Roldan MD social history revie wed E&M reviewed - no changes required Kenney Roldan MD social history E&M The patient d enies alcohol, tobacco and illicit drug use. Kenney Roldan MD smoking status Never smoker Michelle Reed FAMILY HISTORY Family Member Condition Mother Family History of CV A or Stroke: INSURANCE PROVIDERS Payer name Policy type / Coverage type [place] red democrat ID [facility] [employer] [facility] [id number] [place] MEDICARE PART B Medicare [id number] ADVANCE DIRECTIVES Name Date DISCUSSED - NO DECISION MADE TREATMENT PLAN Date Name Performer Cardiology:normal ab i in 2018 n o hx cad, mi, or cva Josseline Salguero RN Cardiology:edema, re dness, weeping have all improved over past month u sing jana wrap compression wrap lle wants to continue to hold off on left lsv venaseal procedure f/u prn? Josseline Salguero RN Cardiology:BP today: 130/85 P rior BP: 120/70 (11/08/2019) Josseline Salguero RN Cardiology: H is updated medication list for this problem includes: Spironolactone-hctz 25-25 Mg Oral Tablet (Spironolactone-hctz) ..... 1 tab by mouth once daily Atenolol 50 Mg Oral Tablet (Atenolol) ..... 1 tab by mouth once daily Aspirin 81 Mg Oral Tablet (Aspirin) ..... One tab daily Que Walters MD Cardiology: H is updated medication list for this problem includes: Aspirin 81 Mg Oral Tablet (Aspirin) ..... 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 This is better post antibiotic rx. C/o lump behind left knee and still has still hs weeping edema and foot is drenched - this is from clotted out gsv (nothing to do and should resolve) recommend left lsv venaseal for persistent weeping in this area Que Walters MD Cardiology: B lood pressure is at goal. Quevolodymyr Walters MD Cardiology: T he following medications were removed from the medication list: Glimepiride 4 Mg Oral Tablet (Glimepiride) ..... Take 1 tablet twice daily Metformin Hcl 1000 Mg Oral Tablet (Metformin hcl) ..... Take 1 tablet twice daily Lisinopril-hydrochlorothiazide 10-12.5 Mg Oral Tablet (Lisinopril-hydrochlorothiazide) ..... One tab daily His updated medication list for this problem includes: Aspirin 81 Mg Oral Tablet (Aspirin) ..... One tab daily Quevolodymyr Walters MD Cardiology:normal oswald in 2018 Corcoran dwayne Walters MD Cardiology:Patient c omes in for intiial evaluation - referred by Dr Ricardo. He has a hx of LLE venous ulcer which has been healed for 2 years. He has had cellulits 6 weeks ago which is also getting better but has a hx of cellulits in past x2. T here is no hx of dvt, but has a hx of varicose veins. will check venous dopplers and plan evlt left gsv Que Walters MD Cardiology:Exam find ings are most consistent with venous insufficiency. LV systolic function is notably normal on his echocardiogram today. Kenney Roldan MD Cardiology:The patie nt says sugars have been improved lately due to better dietary habits. I will defer glycemic management to his PCP. Kenney Roldan MD Cardiology:Blood pressure is at goal. Kenney Roldan MD Cardiology:The patie nt reports some improvement of his R 3rd toe ulcer. As previously noted, he has good arterial flow on the ultrasound. I had suspected he has small vessel disease related to long-standing diabetes and had started Amlodipine. He stopped it, though, possibly due to a rash (the story is vague). Since he is better, there is no immediate need for therapy. If needed, I will plan to add Imdur to his regimen as a vasodilator. Kenney Roldan MD Cardiology:The patie nt says sugars have been 'up and down' over the years, though they have been better controlled lately as he has watched the diet more closely. I will defer glycemic management to his PCP. Kenney Roldan MD Cardiology:Blood pre ssure is above goal, and I am adding Amlodipine as noted above. Kenney Roldan MD Cardiology:Findings are most consistent with venous insufficiency. Given his exertional dyspnea, though, I will obtain an echocardiogram to evaluate cardiac anatomy and function. Kenney Roldan MD Cardiology:The yamile nt has good arterial flow on the ultrasound and has healed multiple ulcers on his shins per his report. His slower capillary refill provides evidence of small vessel disease, likely due to his long-standing diabetes. I will start Amlodipine at 10mg qday for now. He is aware that he may have some increase in lower extremity edema, and I will consider a change to Imdur if needed. Kenney Roldan MD Date Name Complete Echo Venous Doppler Unila teral RLE PROBNP, N TERMINAL Venous Doppler Bilat eral LE - Reflux HISTORY OF PROCEDURES Procedure Date Procedure Name Provider Procedure Notes S tatus EKG Jazz Stephens completed EKG Kenney Roldan MD completed
--- OUTSIDE RECORDS SUMMARY | 2025-01-31 16:12 | XMS_ITS | Clinical Summary ---
Author Organization [facility] Address [address] [place] [id number] Care Team Providers Care Electrician Name Role Phone Zain Newby MD Primary Care Provider [phone] Social History Tobacco Use Types Packs/Day Years Used Date Smoking Tobacco: Never Assessed Sex and Gender Information Value Date Recorded Sex Assigned at Not on file Legal Sex Male 12:03 PM CDT Gender Identity Not on file Sexual Orientation Not on file Plan of Treatment Health Maintenance Due Date Last Done Comments DTAP/TDAP/TD VACCINES (1 - Tdap) 1967 COLORECTAL SCREENING 1993 Colorectal Cancer Screening 1993 FIT-DNA Q 3 years 1993 FIT/FOBT Q 1 year 1993 Flex Sig/CT Colonography Q 5 years 1993 PNEUMOCOCCAL VACCINE 50+ YEARS (1 of 1 - PCV) 11/29/18 99 ZOSTER VACCINE (1 of 2) 1998 RSV VACCINE (60+ or ) (1 - 1-dose 75+ series) 2023 INFLUENZA VACCINE (#1) 2024 Insurance MEDICARE PART A AND B Care Teams Electrician Relationship Specialty Start Date End Date Zain Newby MD [address] [place] [id number] PCP - General Internal Medicine 07/22/21
== END 2025-01-31 14:56 | disposition home or self-care (01) ==
LOC: CHSIMG 14:58
PROVIDERS: PCP Internal Medicine; Visit Provider Nurse Practitioner Family
DX: M25.562 Pain in left knee (principal)
CPT/HCPCS: 73562